=== PATIENT | male | born 1950 | race Caucasian/White ===

== ENCOUNTER 2025-06-16 14:01 | Outpatient (AMB) | payer OTHER, SELFPAY ==
--- NOTE | 2025-06-16 14:21 | MHC.PC.OV ---
Vital Signs 06/16/25 14:30 Height 5 ft 7.32 in Weight 175 lb BMI 27.1 BP 140/82 H Respiration 14 Pulse 60 Pulse Source Pulse Oximeter Temp 98.2 F Temp Source Temporal Artery Scan Pulse Oximetry (%) 98 Intake Visit Reasons: Establish care River Guide Required: No Accompanied by: Self / Same As Patient Allergies No Known Allergies Allergy (Verified 06/16/25 14:55) Medication List - Last Reconciled 06/16/25 by Arie Chase MD No Known Home Meds Tobacco use date assessed: 06/16/25 Fall risk assessment: No Falls in past year Last assessed Fall Risk: 06/16/25 Dental Screening Dental Screen Date: 06/16/25 Did you have a dental visit in the last 12 months?: Yes Did you have a dental problem in the last 6 months where you did not have access to dental care?: No Was dental information given to patient?: Patient has dentist HPI Establish care HPI Details Transferring from Dr Maciel. In good health and on no medications. [facility] Family History Father No problems noted. Mother No problems noted. Social History Housing: House Alcohol intake: current Alcohol intake frequency: 0-2 drinks per day Alcohol type: beer Patient Tobacco Use Status: Never used Tobacco service: No Current occupational status: employed Cognitive needs: No Hearing needs: Yes (b/l hearing aids) Vision needs: Yes (rx glasses) Questionnaire PHQ-9 Over the last 2 weeks, how often have you been bothered by any of the following problems? 1. Little interest or pleasure in doing things: not at all 2. Feeling down, depressed, or hopeless: not at all 3. Trouble falling or staying asleep, or sleeping too much: not at all 4. Feeling tired or having little energy: not at all 5. Poor appetite or overeating: not at all 6. Feeling bad about yourself - or that you are a failure or have let yourself or your family down: not at all 7. Trouble concentrating on things, such as reading the newspaper or watching television: not at all 8. Moving or speaking so slowly that other people could have noticed. Or the opposite - being so fidgety or restless that you have been moving around a lot more than usual: not at all 9. Thoughts that you would be better off or of hurting yourself in some way: not at all Total score: 0 Source: Developed by Drs. Delvin Ashton, Romina Gómez, Willy Burciaga and colleagues, with an educational rolo from [employer]. Thrive Questionnaire Date Thrive assessed: 06/16/25 I am a: Patient What is your living situation today?: I have a steady place to live Within the past 12 months, did the food you bought not last and you didn't have the money to get more?: Never true Within the past 12 months, did you worry whether your food would run out before you got money to buy more?: Never true Do you have trouble paying for medicines?: No Do you have trouble getting transportation to medical appointments?: No Do you have trouble paying your heating and electricity bill?: No Do you have trouble taking care of your child, family member or friend?: No Do you have trouble with day-to-day activities such as bathing, preparing meals, shopping, managing finances, etc.?: No Are you currently unemployed and looking for a job?: No Are you interested in more education?: No Please select the resources that you would like help with: None THRIVE Score: 0 AUDIT C Alcohol Use Questionnaire (AUDIT-C) 1. How often do you have a drink containing alcohol?: 4 or more times a week 2. How many drinks containing alcohol do you have on a typical day when you are drinking?: 1 or 2 3. How often do you have six or more drinks on one occasion?: Never Total Score: 4 CHAY-7 AMB Questionnaire CHAY-7 Date CHAY - 7 assessed: 06/16/25 Feeling nervous, anxious, or on edge: 0 = Not at all Not being able to stop or control worryin = Not at all Worrying too much about different things: 0 = Not at all Trouble relaxin = Not at all Being so restless that it is hard to sit still: 0 = Not at all Becoming easily annoyed or irritable: 0 = Not at all Feeling afraid as if something awful might happen: 0 = Not at all Total CHAY-7 score (0-4 normal; 5-9 mild; 10-14 moderate; 15-21 severe): 0 Source: Developed by Drs. Delvin Ashton, Romina Gómez, Willy Burciaga and colleagues, with an educational rolo from [employer]. Physical exam (Primary Care) Vital Signs: Last Vital Signs Temp 98.2 F 06/16/25 14:30 Pulse 60 06/16/25 14:30 Resp 14 06/16/25 14:30 BP 140/82 H 06/16/25 14:30 Pulse Ox 98 06/16/25 14:30 BMI result Body Mass Index 27.1 Tobacco/Smoking Status: Tobacco use Status Tobacco use date assessed 06/16/25 06/16/25 14:24 Patient Tobacco Use Status Never used Tobacco 06/16/25 14:34 PHQ-9: PHQ-9 Score PHQ-9: Total score 0 06/16/25 14:43 Thrive Assessment: Date of Thrive Assessment Date Thrive assessed 06/16/25 06/16/25 14:24 Coding Level of Care Code New Pt Level 4 (85882) Complex EM visit Add On G2211 Diagnoses Hyperlipidemia E78.5 Assessment & Plan Assessment & Plan (1) Hyperlipidemia: Code(s): E78.5 - Hyperlipidemia, unspecified Plan: Fasting bw ordered. Will call with results Plan History of Present Illness - The patient is a 74-year-old male presenting for a wellness visit and establishment of care. - Reports feeling well for his age with no current health concerns. - Has not had a colonoscopy in over 10 years and agrees to schedule one. - Denies any history of diabetes or sugar issues. - Engages in regular physical activity, including gardening and plans to resume running. - Member of the [facility] with plans for strength workouts. Social History - Employment: Works at [employer] in [facility], involved in fundraising activities. - Exercise: Regular gardening, plans to resume running, and participates in strength workouts at the [facility]. Review of Systems - General: Denies any current health concerns. - Endocrine: Denies diabetes or sugar issues. - Genitourinary: Denies any trouble with urination. Physical Exam General: Cooperative and healthy appearing Nutritional Appearance: Well nourished Orientation/consciousness: Patient oriented x3 Limitations: No limitations Head: Normal to inspection General: Appearance normal, both eyes and all related structures Neck: Normal visual inspection Chest: Normal palpation of entire chest wall Respiratory: Deep breath. Out. Okay. Good. ormal respiratory effort Neurology: Patient oriented x3 Results Plan 1. Preventative Care: Colon Cancer Screening - Schedule a colonoscopy due to the lapse of over 10 years since the last screening. 2. Preventative Care: Blood Work For Prostate, Kidney, And Liver Function - Conduct fasting blood work to assess prostate, kidney, and liver function. Discussion Notes During the visit, I discussed the importance of scheduling a colonoscopy given the lapse of over 10 years since the last screening. I also recommended fasting blood work to evaluate prostate, kidney, and liver function. The patient was informed about the location of the lab and the need to fast after midnight. We agreed on a follow-up appointment in six months, which can be canceled if no issues arise. Patient Instructions - Schedule a colonoscopy as it has been over 10 years since the last one. - Go for fasting blood work to check prostate, kidney, and liver function. Fast after midnight, but you can have black coffee or water in the morning. - Follow up in six months unless issues arise. Orders: Orders Basic Metabolic Panel Today E78.5 - Hyperlipidemia, unspecified Complete Blood Count no Diff Today E78.5 - Hyperlipidemia, unspecified Lipid Panel Today E78.5 - Hyperlipidemia, unspecified Liver Panel Today E78.5 - Hyperlipidemia, unspecified Thyroid Stimulating Hormone Today E78.5 - Hyperlipidemia, unspecified UA and rflx microscopic Today E78.5 - Hyperlipidemia, unspecified Hemoglobin A1c Today E78.5 - Hyperlipidemia, unspecified Prostate Specific Antigen Scr Today E78.5 - Hyperlipidemia, unspecified Referrals Gastroenterology Referral Z12.11 - Encounter for screening for malignant neoplasm of colon
[2025-06-16 14:30] VITALS: BP 140/82; PULSE 60; RESP 14; TEMP 36.8; O2SAT 98; BMI 27.1
--- OUTSIDE RECORDS SUMMARY | 2025-06-16 15:16 | XMS_ITS | Clinical Summary ---
Author Organization [facility] Address [address] [place] [address] Phone Care Team Providers Care Superintendent Stevedoring Name Role Phone Physician, Pcp Unknown Primary Care Provider Aida vailable Allergies No known active allergies Medications cyclobenzaprine (FLEXERIL) 10 mg tablet Take 1 tablet (10 mg total) by mouth 2 (two) times a day if needed for muscle spasms for up to 10 days. 20 tablet 01/24/2025 Active Social History Tobacco Use Types Packs/Day Years Used Date Smoking Tobacco: Never Assessed Sex and Gender Information Value Date Recorded Sex Assigned at Male 01/24/2025 9:46 AM EDT Legal Sex Male 8:39 AM EDT Gender Identity Male 01/24/2025 9:46 AM EDT Sexual Orientation Straight 01/24/2025 9: 46 AM EDT Obstetrics History Last Filed Vital Signs Vital Sign Reading Time Taken Comments Blood Pressure 170/90 01/24/2025 8:44 AM EDT Pulse 65 01/24/2025 8:44 AM EDT Temperature 36.1 C (97 F) 01/24/2025 8:44 AM EDT Respiratory Rate 18 01/24/2025 8:44 AM EDT Oxygen Saturation 100% 01/24/2025 8:44 AM EDT Inhaled Oxygen Concentration - - Weight 83.9 kg (185 lb) 01/24/2025 8:42 AM EDT Height 172.7 cm (5' 8 ) 01/24/2025 8:42 AM EDT Body Mass Index 28.13 01/24/2025 8:42 AM EDT Plan of Treatment Health Maintenance Due Date Last Done Comments Pneumococcal Vaccine: 50+ Ye ars (1 of 1 - PCV) 2002 Zoster Vaccines (1 of 2) 2002 Depression Screening 10/15/2024 Abdominal Aortic Aneurysm (A AA) Screen 01/24/2025 Cholesterol Screening (Lipid Panel) 01/24/2025 Colorectal Cancer Screening: Colonoscopy 01/24/2025 Falls Risk Assessment 01/24/2025 Hepatitis C Screening 01/24/2025 Social Influencers of Health Screening 01/24/2025 COVID-19 Vaccine (2 - 2024-2 6 season) 2025 04/24/2024 Influenza Vaccine (#1) 2025 RSV Immunization Adult Patie nts (1 - 1-dose 75+ series) 2027 DTaP,Tdap,and Td Vaccines (2 - Td or Tdap) 04/03/2034 04/03/2024 HIB Vaccines Aged Out No longer eligi ble based on patient's age to complete this topic HPV Vaccines Aged Out No longer eligi ble based on patient's age to complete this topic Hepatitis A Vaccines Aged Out No long er eligible based on patient's age to complete this topic Hepatitis B Vaccines Aged Out No long er eligible based on patient's age to complete this topic IPV Vaccines Aged Out No longer eligi ble based on patient's age to complete this topic MMR Vaccines Aged Out No longer eligi ble based on patient's age to complete this topic Meningococcal ACWY Vaccine Aged Out N o longer eligible based on patient's age to complete this topic Meningococcal B Vaccine Aged Out No l onger eligible based on patient's age to complete this topic RSV Immunization Patients Un gumaro 20 months Aged Out No longer eligible b ased on patient's age to complete this topic Varicella Vaccines Aged Out No longer eligible based on patient's age to complete this topic Insurance MEDICARE AETNA Care Teams Superintendent Stevedoring Relationship Specialty Start Date End Date Physician, Pcp Unknown PCP - General 01/24/25
== END 2025-06-16 14:59 | disposition home or self-care (01) ==
LOC: HO.HMCSH 14:01
PROVIDERS: PCP Internal Medicine; Visit Provider Internal Medicine
DX: E78.5 Hyperlipidemia, unspecified (principal)

== ENCOUNTER 2025-06-17 10:42 | Outpatient (REF) | payer OTHER, SELFPAY ==
--- OUTSIDE RECORDS SUMMARY | 2025-06-17 12:26 | XMS_ITS | Clinical Summary ---
Author Organization [facility] Address [address] [place] [address] Phone Care Team Providers Care Manager Laboratory Name Role Phone Physician, Pcp Unknown Primary [...] this topic Insurance MEDICARE AETNA Care Teams Manager Laboratory Relationship Specialty Start Date End Date Physician, Pcp Unknown PCP - General 01/24/25
[2025-06-17 13:06] LABS: Appearance Urine Clear; Glucose Urine UA Negative (Negative); PH 5.5 (5.0-9.0); Specific Gravity - Urine 1.020 (1.005-1.025)
[2025-06-17 13:08] LABS: Hematocrit 47.1 % (42.0-52.0); Hemoglobin 15.4 g/dl (14.0-18.0); Mean Corpuscular HGB Conc 32.7 g/dl (31.0-36.0); Mean Corpuscular Hemoglobin 29.3 pg (27.0-33.0); Mean Corpuscular Volume 89.7 fL (80.0-98.0); NRBC Abs Auto 0.000 X10*3/uL (0.0-0.012); NRBC Pct Auto 0.0 /100WBC (0.0-0.2); Platelet Count 200 X10*3/uL (160-400); Red Blood Count 5.25 X10*6/uL (4.60-5.80); White Blood Count 6.5 X10*3/uL (4.8-10.8)
[2025-06-17 13:14] LABS: Hemoglobin A1C 133.7335 umol/L; Total Hemoglobin (HGBA1C) 4076.2460 umol/L
[2025-06-17 13:38] LABS: Alanine Aminotransferase 14 U/L (0-40); Albumin Level 4.4 g/dL (3.5-5.0); Alkaline Phosphatase 101 U/L (39-117); Anion Gap 11 (12-20); Aspartate Amino Transferase 32 U/L (5-37); Blood Urea Nitrogen 21 mg/dL (9-16); Calcium 9.1 mg/dL (8.4-10.2); Carbon Dioxide 25 mmol/L (22-29); Chloride 108 mmol/L (96-108); Cholesterol 222 mg/dL (<200); Estimated Glomerular Filt Rate > 60; HDL Cholesterol 48 mg/dL (>40); Potassium 4.1 mmol/L (3.3-5.1); Sodium 140 mmol/L (135-145); Total Protein 7.2 g/dL (6.5-8.0); Triglycerides 80 mg/dL (<150)
[2025-06-17 13:43] LABS: Thyroid Stimulating Hormone 2.45 uIU/mL (0.32-4.0)
== END 2025-06-17 10:43 | disposition home or self-care (01) ==
LOC: HO.HMGCLDS 10:42
PROVIDERS: PCP Internal Medicine; Visit Provider Internal Medicine
DX: Z12.5 Encounter for screening for malignant neoplasm of prostate (principal); E78.5 Hyperlipidemia, unspecified; Z13.1 Encounter for screening for diabetes mellitus
CPT/HCPCS: 36415; 80048; 80061; 80076; 81003; 83036; 84153; 84443; 85027

== ENCOUNTER 2025-10-02 11:57 | Outpatient (AMB) | payer OTHER, SELFPAY ==
--- NOTE | 2025-10-02 11:59 | MHC.OFFVIS ---
Vital Signs 10/02/25 12:00 Height 5 ft 7.3 in Weight 174 lb 2.643 oz BMI 27.0 BP 164/86 H Blood Pressure Location Lt brachial Position Sitting Pulse 62 Intake Visit Reasons: Colonoscopy Screening Intake Note: Zac presents in the office as a new patient colonoscopy screening CC: States that he has no concerns - last colo was 10 years ago in [place]. Allergies No Known Allergies Allergy (Verified 10/02/25 12:01) HPI HPI Colonoscopy Screening: Details: 74-year-old male here for preprocedural meeting to discuss a screening colonoscopy. He is referred by Arie Chase. PMX No chronic * SURGICAL HISTORY Colonoscopy Melanoma removal * ALLERGIES: NKDA * [employer] LABS: Laboratory Tests 06/17/25 10:48 WBC 6.5 Hgb 15.4 Hct 47.1 Plt Count 200 Estimated GFR > 60 Total Bilirubin 0.5 Direct Bilirubin 0.2 AST 32 ALT 14 Alkaline Phosphatase 101 TSH 2.45 TODAY'S VISIT Prior scopes: Many years ago and was negative Bowel or upper GI problems:No Cardiac or respiratory problems: No Problems with anesthesia or sedation: No Infectious disease problems: No Family history of colon cancer or polyps:No PFSH Surgical History (Updated 10/02/25 @ 12:01 by ANAND Proctor) Hx of colonoscopy Family History Father No problems noted. Mother No problems noted. Social History Housing: House Alcohol intake: current Alcohol intake frequency: 0-2 drinks per day Alcohol type: beer Patient Tobacco Use Status: Never used Tobacco service: No Current occupational status: employed Cognitive needs: No Hearing needs: Yes (b/l hearing aids) Vision needs: Yes (rx glasses) Review of Systems Const Denies fatigue, Denies fever(s), Denies night sweats, Denies poor appetite and Denies weight loss ENT Reports Normal hearing present, Denies dental pain, Denies dysphagia, Denies hearing loss, Denies mouth pain, Denies odynophagia, Denies throat swelling, Denies tongue swelling and Reports other (Dentition adequate) Card Reports no additional complaints Resp Reports no additional complaints GI Details: Denies abdominal pain, Denies melena, Denies bloating, Denies hematochezia, Denies constipation, Denies GI cramping, Denies dysphagia, Denies excessive flatus, Denies early satiety, Denies heartburn, Denies diarrhea, Denies nausea, Denies odynophagia, Denies vomiting and Denies hematemesis Skin/Breast Denies pruritus, Denies lesions, Denies rash and Denies jaundice Neuro Reports Normal hearing present and Denies Abnormal speech present Endo Denies fatigue Aller/Immun Denies throat swelling and Denies tongue swelling Physical Exam Vital Signs: Last Vital Signs Pulse 62 10/02/25 12:00 BP 164/86 H 10/02/25 12:00 BMI result Body Mass Index 27.0 Const General: cooperative, no acute distress, well developed and well groomed Nutritional Appearance: average body habitus and well nourished Orientation/consciousness: oriented to person, oriented to place and oriented to time Limitations: No language barrier HEENT Head: Yes normocephalic and Yes atraumatic Eyes General: appearance normal, both eyes and all related structures Pupils: Equal, round and reactive pupils present Neck Neck: Yes normal visual inspection and Yes no lymphadenopathy Thyroid: Thyroid normal Resp Effort & Inspection: normal respiratory effort and able to speak in complete sentences Auscultation: clear to auscultation bilaterally Cardio Rate: regular rate Rhythm: regular rhythm Heart sounds: Normal, physiologic split S2 sound present Peripheral pulses: radial pulses present and posterior tibial pulses present GI Inspection: No distended and No Abdominal panniculus present Palpation (GI): Soft to palpation, nontender, no guarding, not rigid and No hepatosplenomegaly present Percussion: Yes normal to percussion Auscultation: normal bowel sounds Rectal Exam - Male: Yes deferred Skin General skin exam: no rashes or lesions noted, turgor normal, skin not dry, no jaundice, No spider nevi and no striae Rashes: no rashes Nails: normal Neuro General: oriented to person, oriented to place and oriented to time Cranial nerves: Yes Equal, round and reactive pupils present and Yes Normal hearing present Speech: No Abnormal speech present Extrem General: Yes normal to inspection, No clubbing, No cyanosis and No edema Psych Appearance: grossly normal and well kempt Mental Status: mental status grossly normal Speech and movement: Normal speech and movement present Affect: normal affect Attitude: cooperative Thought process: Normal thought process present and not confabulating Thought content: Normal thought content present Insight: Good insight present (Psych) Judgement: Good judgement present (Psych) Assessment & Plan Assessment & Plan (1) Pre-op examination: Code(s): Z01.818 - Encounter for other preprocedural examination Category: Medical Plan Prior scopes: Many years ago and was negative Bowel or upper GI problems:No Cardiac or respiratory problems: No Problems with anesthesia or sedation: No Infectious disease problems: No Family history of colon cancer or polyps:No Orders: Referrals GI Procedure Notification Z01.818 - Encounter for other preprocedural examination Medications: New sodium,potassium,mag sulfates 17.5-3.13-1.6 gram (Suprep Bowel Prep Kit) 480 mL orally; FOR COLONOSCOPY PREP 354 mL 0RF Coding Level of Care Code New Pt Level 3 (25198) Diagnoses Pre-op examination Z01.818
[2025-10-02 12:00] VITALS: BP 164/86; PULSE 62; BMI 27.0
--- OUTSIDE RECORDS SUMMARY | 2025-10-02 14:03 | XMS_ITS | Clinical Summary ---
Author Organization [facility] Address [address] [place] [address] Phone Care Team Providers Care Fire Boss Name Role Phone Physician, Pcp Unknown Primary [...] Orientation Straight 01/24/2025 9: 46 AM EDT Last Filed Vital Signs Vital Sign Reading [...] Health Maintenance Due Date Last Done Comments Colorectal Cancer Screening: Colonoscopy 1952 Pneumococcal Vaccine: 50+ Ye ars (1 of 1 - PCV) 2002 Zoster Vaccines (1 of 2) 2002 Depression Screening 10/15/2024 Abdominal Aortic Aneurysm (A AA) Screen 01/24/2025 Cholesterol Screening (Lipid Panel) 01/24/2025 Falls Risk Assessment 01/24/2025 Hepatitis C [...] this topic Insurance MEDICARE AETNA Care Teams Fire Boss Relationship Specialty Start Date End Date Physician, Pcp Unknown PCP - General 01/24/25
== END 2025-10-02 12:17 | disposition home or self-care (01) ==
LOC: HO.HGI 11:58
PROVIDERS: PCP Internal Medicine; Visit Provider Nurse Practitioner
DX: Z01.818 Encounter for other preprocedural examination (principal); Z12.11 Encounter for screening for malignant neoplasm of colon
CPT/HCPCS: S0285